=== PATIENT | female | born 1985 | race American Indian/Alaskan Native ===

== ENCOUNTER 2016-11-19 11:24 | Emergency (ER) | payer OTHER ==
[2016-11-19 12:03] VITALS: BP 137/98
[2016-11-19] MEDS ORDERED: NORCO 5/325 PO ONE (14:09)
--- NOTE | 2016-11-19 14:15 | Emergency Department Report ---
Upper Extremity - HPI Chief Complaint: Extremity Injury, Upper Stated Complaint: BROKEN LT WRIST Time Seen by Provider: 11/19/16 13:57 Upper Extremity: Left Wrist Occurred When: Today Mechanism: Hit with Object Symptoms: Yes Pain with Movement, Yes Limited Range of Movement, Yes Swelling, Yes Bruising/Ecchymosis, No Deformity, No Numbness, No Weakness, No Laceration or Abrasion Other History: Patient is a 31-year-old female presents to ED with left wrist and hand pain times one day. Patient states earlier this morning she was dropping off her kids at school and hit close the truck door on her hand. She denies loss of sensation and left ribs by means pain throbbing nonradiating in nature. She rates her pain 9 out of 10 intensity. Patient states pain aggravated with any movement of the wrist. Patient denies fever/chills/nausea/ vomitingabdominal pain/headache/shortness of breath/chest pain. ED Review of Systems ROS: Stated complaint: BROKEN LT WRIST Other details as noted in HPI Constitutional: denies: chills, fever Eyes: denies: eye pain, eye discharge, vision change ENT: denies: ear pain, throat pain Respiratory: denies: cough, shortness of breath, wheezing Cardiovascular: denies: chest pain, palpitations Endocrine: no symptoms reported Gastrointestinal: denies: abdominal pain, nausea, vomiting, diarrhea, hematemesis Genitourinary: denies: urgency, dysuria, discharge Musculoskeletal: joint swelling, arthralgia. denies: back pain, myalgia Skin: denies: rash, lesions Neurological: denies: headache, weakness, numbness, paresthesias, confusion, abnormal gait Psychiatric: denies: anxiety, depression, homicidal thoughts, suicidal thoughts Hematological/Lymphatic: denies: easy bleeding, easy bruising ED Past Medical Hx - Past Medical History Previous Medical History?: No - Surgical History Past Surgical History?: Yes Additional Surgical History: Hysterectomy - Social History Smoking Status: Never Smoker Substance Use Type: None - Medications Home Medications: Home Medications Medication Instructions Recorded Confirmed Last Taken Type HYDROcodone/APAP 5-325 [Coram 1 each PO Q6HR PRN #20 tablet 11/19/16 Unknown Rx 5/325] Ibuprofen [Motrin 800 MG tab] 800 mg PO Q8HR PRN #30 tablet 01/25/17 Unknown Rx Upper Extremity Exam - Exam General: Vital signs noted. No distress. Alert and acting appropriately. GENERAL: Alert and oriented x3, no apparent distress, Normal Gait, atraumatic. HEAD: Head is normocephalic and a-traumatic. NECK: Supple. Non edematous, No carotid bruits. No lymphadenopathy or thyromegaly. LUNGS: Symetrical with respiration, No wheezing, no rales or crackles, CTAB. HEART: S1, S2 present, regular rate and rhythm without murmur, no rubs, no gallops. EXTREMITIES/MUSCULOSKELETAL: No cyanosis, clubbing, rash, lesions or edema. Full ROM bilaterally. UE Pulses 2+ bilaterally. SKIN: Warm and dry, No lesions, No ulceration or induration present. Head and Torso: No HEENT Abnormality, No Neck Tenderness, No Chest/Lungs Abnormality, No Abdominal Tenderness, No Back Tenderness Shoulder Exam: Yes Normal Range of Motion in Shoulder, No Shoulder Tenderness, No Clavicle Tenderness, No Shoulder Deformity, No AC Joint Tenderness Arm Exam: No Arm/Humerus Tenderness, No Arm Deformity Elbow: No Elbow Tenderness, No Normal Range of Motion in Elbow, No Elbow Deformity Forearm: No Forearm Tenderness, No Forearm Deformity, No Pain with Pronation, No Pain with Supination Wrist: Yes Wrist Tenderness, No Normal ROM in Wrist, No Wrist Deformity, No Snuffbox Tenderness, No Pain with Axial Thumb Compression Hand: Yes Normal ROM in Digit(s), No Hand Tenderness, No Hand Deformity, No Digit Tenderness, No Digit(s) Deformity, No Tendon Dysfunction CMS Exam: No Broken Skin, No Normal Distal Pulses, No Normal Capillary Refill, No Normal Distal Sensation ED Course Vital Signs 11/19/16 12:00 Temperature 98.3 F Pulse Rate 88 Respiratory 18 Rate Blood Pressure 137/98 O2 Sat by Pulse 100 Oximetry ED Medical Decision Making - Medical Decision Making 31-year-old female presents with ulnar styloid fracture closed Vital signs stable. Patient is in no respiratory distress but in some mild distress from pain. X-ray of left wrist shows closed ulnar styloid fracture with mild tissue swelling. Patient received 2 tabs of Coram in the ED. Patient go home on pain medication regimen milligram Motrin and Coram 5/325 mg. Discussed with patient to make sure she follows up with orbital Dr. Layne or Saw's office as referred. Patient received copy of CD and a report of the x -ray. Discussed to take x-ray to follow-up visit. Patient states she understands and will comply and follow-up. Patient's wrist was Sd wrapped and put in rest immobilizer splint Critical care attestation.: If time is entered above; I have spent that time in minutes in the direct care of this critically ill patient, excluding procedure time. ED Disposition Clinical Impression: Wrist pain Ulna styloid fracture, closed Qualifiers: Encounter type: initial encounter Fracture alignment: nondisplaced Laterality: left Qualified Code(s): S52.615A - Nondisplaced fracture of left ulna styloid process, initial encounter for closed fracture Disposition: DISCHARGED TO HOME OR SELFCARE Is pt being admited?: No Does the pt Need Aspirin: No Condition: Stable Instructions: Wrist Fracture in Adults (ED), Hand Fracture (ED), RICE Therapy ( ED) Additional Instructions: Follow instructions as given. Follow-up with orthopedics doctors as referred. Take your medication as prescribed. Prescriptions: Ibuprofen [Motrin 800 MG tab] 800 mg PO Q8HR PRN #30 tablet PRN Reason: Pain HYDROcodone/APAP 5-325 [Coram 5/325] 1 each PO Q6HR PRN #20 tablet PRN Reason: Pain Referrals: PRIMARY CARE, [Primary Care Provider] - 3-5 Days JOAQUIM LAYNE MD [Staff Physician] - 3-5 Days ANABELLE HESS MD [Staff Physician] - 3-5 Days [facility] [Outside] - 3-5 Days [facility] [Outside] - 3-5 Days [facility] [Outside] - 3-5 Days Forms: Work/School Release Form(ED), Accompanied Note Time of Disposition: 15:19
--- NOTE | 2016-11-19 14:42 | XRay Report ---
LEFT WRIST, 3 VIEWS: History: Wrist pain Findings: Transverse fracture at the base of the ulnar styloid is identified. The remaining carpal bones are within normal limits. Soft tissue swelling. Impression: Ulnar styloid fracture.
--- NOTE | 2016-11-19 14:43 | XRay Report ---
LEFT HAND, 3 views: History: Pain. The bony architecture is intact. Bony alignment is normal. No soft tissue abnormalities are seen. The joint spaces appear preserved. Ulnar styloid fracture is noted. Correlate with left wrist report. IMPRESSION: Unremarkable left hand
== END 2016-11-19 15:25 | disposition home or self-care (01) ==
LOC: ED 11:24
DX: S52.615A Nondisplaced fracture of left ulna styloid process, initial encounter for closed fracture (principal); Z90.710 Acquired absence of both cervix and uterus; W22.8XXA Striking against or struck by other objects, initial encounter; Y93.9 Activity, unspecified; Y92.9 Unspecified place or not applicable; Y99.9 Unspecified external cause status